=== PATIENT | male | born 1980 | race Caucasian/White ===

== ENCOUNTER 2022-09-29 01:00 | Day surgery (SDC) | payer BC, SELFPAY ==
[2022-09-17 10:22] VITALS: BMI 30.9
--- NOTE | 2022-09-26 12:09 | P.HP_ITS ---
History of Present Illness History of Present Illness Consent: Risks, benefits, and alternatives have been discussed and questions answered. Patient agrees to proceed with procedure. Chief complaint: fecal abnormalities Narrative: Magdy Orr is a 42 year old male who has noticed a change in his bowel habits. He has seen a great deal of mucus in the stools lately. he has had no blood in his stools. There is a family history of colon cancer , both grand parents on his father side had colon cancer. Review of Systems Review of Systems: All systems reviewed & are unremarkable except as noted in HPI and below PMFSH Social History Social History Smoking status: Never smoker Alcohol intake: never Substance use: never Substance use type: does not use Living arrangements: with family Spiritual care concerns: No Meds Home Medications and Allergies Home Medications Medication Instructions Recorded Confirmed Type No Home Medications 09/17/22 09/17/22 History Allergies Allergy/AdvReac Type Severity Reaction Status Date / Time No Known Allergies Allergy Verified 09/29/22 09:20 Exam Const: General: alert Orientation/consciousness: patient oriented x3 Resp: Auscultation: clear to auscultation bilaterally Cardio: Rhythm: regular rhythm GI: GI Palp: Yes Soft to palpation and No Tenderness to palpation present (GI) Neuro: General: patient oriented x3 Assessment and Plan Assessment and plan (1) Change in bowel habits: Code(s): R19.4 - Change in bowel habit Status: Acute Assessment and Plan: Colonoscopy with possible biopsy or polypectomy or cautery or injection of substances.
[2022-09-29 09:21] VITALS: BP 132/95; PULSE 66; RESP 18; TEMP 36.3; O2SAT 99
[2022-09-29] MEDS: LACTATED RINGERS 1,000 ML 150 ML IV CONT (09:33)
--- NOTE | 2022-09-29 10:13 | P.PNAN_ITS ---
Anes - Initial Pre Proc Eval Procedure: Operation Date: 09/29/22 10:30 Proposed Procedures p Colonoscopy - Portillo Alonso MD Date/Time: 09/29/22 10:13 Surgeon: Portillo Alonso MD Pre Op Diagnosis: fecal abnormalities Patient Data Age: 42 Gender: M Height: 1.78 m Weight: 98.1 kg Last Vital Signs Temp 97.4 F L 09/29/22 09:21 Pulse 66 09/29/22 09:21 Resp 18 09/29/22 09:21 BP 132/95 H 09/29/22 09:21 Pulse Ox 99 09/29/22 09:21 O2 Del Method Room Air 09/29/22 09:21 Allergies Allergy/AdvReac Type Severity Reaction Status Date / Time No Known Allergies Allergy Verified 09/29/22 09:20 Home Medications Medication Instructions Recorded Confirmed Type No Home Medications 09/17/22 09/17/22 History Patient hx anesthesia problems: none Family hx anesthesia problems: none Results Review: All pre-operative results and documents have been reviewed as part of the pre- operative evaluation. [facility] Social History Social History Smoking status: Never smoker Alcohol intake: never Substance use: never Substance use type: does not use Living arrangements: with family Spiritual care concerns: No Anes - Eval Final PreProcedure Day of Procedure 09/29/22 10:13 Patient weight: overweight Heart: regular rate and rhythm Lungs: clear to auscultation Airway: Mallampati scale class II Neurological: alert and oriented Last oral intake: >/= 8 hours ASA classification: II Emergent: no Anesthetic plan: proceed Anesthesia type and monitoring: general GIVS and standard monitoring Results Review: All pre-operative results and documents have been reviewed as part of the pre- operative evaluation. Informed Consent: The patient's anesthetic plan and its attendant risks and benefits were discussed with the patient/family/POA. Questions were solicited and answers provided to the satisfaction of the patient/family/POA.
[2022-09-29 10:56] VITALS: BP 112/82; PULSE 60; RESP 18; O2SAT 95
[2022-09-29 11:06] VITALS: BP 114/80; PULSE 57; RESP 18; O2SAT 97
[2022-09-29 11:16] VITALS: BP 119/85; PULSE 56; RESP 18; O2SAT 97
== END 2022-09-29 11:21 | disposition home or self-care (01) ==
PROVIDERS: PCP Physician Assistant; Visit Provider Internal Medicine Gastroenterology
PROC: 0DJD8ZZ Inspection of Lower Intestinal Tract, Via Natural or Artificial Opening Endoscopic (ICD-10-PCS; CPT 45378; principal; 2022-09-29 10:30)
DX: R19.4 Change in bowel habit (principal); K57.30 Diverticulosis of large intestine without perforation or abscess without bleeding; K51.20 Ulcerative (chronic) proctitis without complications; K52.9 Noninfective gastroenteritis and colitis, unspecified
CPT/HCPCS: 45380; 88305; J2001; J2704; J7120

== ENCOUNTER 2022-11-28 10:47 | Outpatient (CLI) | payer BC, SELFPAY ==
[2022-12-06 19:52] LABS: Calprotectin, Stool 491 mcg/g
== END 2022-11-28 10:48 | disposition home or self-care (01) ==
LOC: ANHLAB 10:48
PROVIDERS: PCP Physician Assistant; Visit Provider Internal Medicine Gastroenterology
DX: K51.20 Ulcerative (chronic) proctitis without complications (principal)
CPT/HCPCS: 83993

== ENCOUNTER 2023-05-19 09:23 | Outpatient (CLI) | payer BC, SELFPAY ==
[2023-05-25 19:03] LABS: Calprotectin, Stool 154 mcg/g
== END 2023-05-19 09:24 | disposition home or self-care (01) ==
PROVIDERS: PCP Physician Assistant; Visit Provider Internal Medicine Gastroenterology
DX: K51.20 Ulcerative (chronic) proctitis without complications (principal)
CPT/HCPCS: 83993

== ENCOUNTER 2024-11-21 00:26 | Day surgery (SDC) | payer BC, SELFPAY ==
[2024-11-09 10:02] VITALS: BMI 30.9
--- OUTSIDE RECORDS SUMMARY | 2024-11-21 00:29 | XMS_ITS | Data Portability ---
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 Plan of Treatment Reminders Order Date Submit Date Provider Last Modified By Organization Details Last Modified Time Details Appointments None recorded. Lab unlisted lab - lipoprotein fractionati on, nmr with lipid panel (triglyceri aliyah/HDL-C) 2022 023 [facility], [address], [place], [address], 3 13:52:01 PSA, serum or plasma 2022 023 [facility], [address], [place], [address], 3 13:52:07 TSH + free T4, serum 2022 023 [facility], [address], [place], [address], 3 13:52:03 CMP, serum or plasma 2022 023 [facility], [address], [place], [address], 3 13:52:04 CBC w/ auto diff 2022 023 [facility], [address], [place], [address], 3 13:52:06 HbA1c (hemoglobin A1c), blood 2022 023 [facility] [facility], [address], [place], [address], 3 13:52:05 Referral None recorded. Procedures None recorded. Surgeries None recorded. Imaging None recorded. Medication Orders None recorded. Patient TargetsNo targets recorded. Patient InstructionsNo instructions recorded. Reason for Referral None Reported. Results Created Date Observation Date Name Description Value Unit Range Abnormal Flag Note LastModifiedBy Organization Detail LastModifiedTime 07/30/2008/02/2021 PSA, TOTAL PSA, total 0.63 NG/mL < or = 4.00 normal The total PSA value from this assay syste m is stand ardiz ed again st the WHO stand brandon. The test resul t will be appro ximat lionel 20% lower when sohail red to the equim olar- stand ardiz ed total PSA (Mahajan man Coult er). Sohail rison of seria l PSA resul ts shoul d be inter prete d with this fact in mind. This test was perfo rmed using the LIN TVe ns chemi lumin escen t metho d. Value s obtai vincent from diffe rent assay metho ds canno t be used inter zhang eably . PSA level s, regar dless of value , shoul d not be inter prete d as absol [place] evide nce of the prese nce or absen ce of disea se. Not Available [facility] [address] [address] [place], [address], 08/02/2021 18:17:24 07/30/20 21 08/02/2021 URINA LYSIS , COMPL ETE color yellow yellow normal Not Available [facility] [address] [address] [place], [address], 08/02/2021 18:17:23 07/30/20 21 08/02/2021 URINA LYSIS , COMPL ETE appearance clear clear normal Not Available [facility] [address] [address] [place], [address], 08/02/2021 18:17:23 07/30/20 21 08/02/2021 URINA LYSIS , COMPL ETE specific gravity 1.010 1.001- 1.035 normal Not Available [address], [address], 08/02/2021 18:17:23 07/30/20 21 08/02/2021 URINA LYSIS , COMPL ETE pH 7.0 5.0-8. 0 normal Not Available [address], [address], 08/02/2021 18:17:23 07/30/20 21 08/02/2021 URINA LYSIS , COMPL ETE glucose negati ve negati ve normal Not Available [address], [address], 08/02/2021 18:17:23 07/30/20 21 08/02/2021 URINA LYSIS , COMPL ETE bilirubin negati ve negati ve normal Not Available [address], [address], 08/02/2021 18:17:23 07/30/20 21 08/02/2021 URINA LYSIS , COMPL ETE ketones negati ve negati ve normal Not Available [address], [address], 08/02/2021 18:17:23 07/30/20 21 08/02/2021 URINA LYSIS , COMPL ETE occult blood negati ve negati ve normal Not Available [address], [address], 08/02/2021 18:17:23 07/30/20 21 08/02/2021 URINA LYSIS , COMPL ETE protein negati ve negati ve normal Not Available [address], [address], 08/02/2021 18:17:23 07/30/20 21 08/02/2021 URINA LYSIS , COMPL ETE nitrite negati ve negati ve normal Not Available [address], [address], 08/02/2021 18:17:23 07/30/20 21 08/02/2021 URINA LYSIS , COMPL ETE leukocyte esterase negati ve negati ve normal Not Available [address], [address], 08/02/2021 18:17:23 07/30/20 21 08/02/2021 URINA LYSIS , COMPL ETE WBC none seen /hpf < or = 5 normal Not Available [address], [address], 08/02/2021 18:17:23 07/30/20 21 08/02/2021 URINA LYSIS , COMPL ETE RBC none seen /hpf < or = 2 normal Not Available [address], [address], 08/02/2021 18:17:23 07/30/20 21 08/02/2021 URINA LYSIS , COMPL ETE squamous epithelial cells none seen /hpf < or = 5 normal Not Available [address], [address], 08/02/2021 18:17:23 07/30/20 21 08/02/2021 URINA LYSIS , COMPL ETE bacteria none seen /hpf none seen normal Not Available [address], [address], 08/02/2021 18:17:23 07/30/20 21 08/02/2021 URINA LYSIS , COMPL ETE hyaline cast none seen /lpf none seen normal Not Available [address] [place], [address], 08/02/2021 18:17:23 07/30/20 21 08/02/2021 CBC (INCL UDES DIFF/ PLT) white blood cell count 6.6 thous and/u L 3.8-10 .8 normal Not Available [address], [address], 08/02/2021 18:17:22 07/30/20 21 08/02/2021 CBC (INCL UDES DIFF/ PLT) red blood cell count 5.05 shan on/uL 4.20-5 .80 normal Not Available [address], [address], 08/02/2021 18:17:22 07/30/20 21 08/02/2021 CBC (INCL UDES DIFF/ PLT) hemoglobin 14.9 g/dL 13.2-1 7.1 normal Not Available [address], [address], 08/02/2021 18:17:22 07/30/20 21 08/02/2021 CBC (INCL UDES DIFF/ PLT) hematocrit 45.2 % 38.5-5 0.0 normal Not Available [address], [address], 08/02/2021 18:17:22 07/30/20 21 08/02/2021 CBC (INCL UDES DIFF/ PLT) MCV 89.5 fL 80.0-1 00.0 normal Not Available [address], [address], 08/02/2021 18:17:22 07/30/20 21 08/02/2021 CBC (INCL UDES DIFF/ PLT) MCH 29.5 pg 27.0-3 3.0 normal Not Available [address], [address], 08/02/2021 18:17:22 07/30/20 21 08/02/2021 CBC (INCL UDES DIFF/ PLT) MCHC 33.0 g/dL 32.0-3 6.0 normal Not Available [address], [address], 08/02/2021 18:17:22 07/30/20 21 08/02/2021 CBC (INCL UDES DIFF/ PLT) RDW 12.0 % 11.0-1 5.0 normal Not Available [address], [address], 08/02/2021 18:17:22 07/30/20 21 08/02/2021 CBC (INCL UDES DIFF/ PLT) platelet count 274 thous and/u L 140-40 0 normal Not Available [address], [address], 08/02/2021 18:17:22 07/30/20 21 08/02/2021 CBC (INCL UDES DIFF/ PLT) MPV 10.0 fL 7.5-12 .5 normal Not Available [address], [address], 08/02/2021 18:17:22 07/30/20 21 08/02/2021 CBC (INCL UDES DIFF/ PLT) absolute neutrophils 4198 cells /uL 1500-7 800 normal Not Available [address], [address], 08/02/2021 18:17:22 07/30/20 21 08/02/2021 CBC (INCL UDES DIFF/ PLT) absolute lymphocytes 1775 cells /uL 850-39 00 normal Not Available [address], [address], 08/02/2021 18:17:22 07/30/20 21 08/02/2021 CBC (INCL UDES DIFF/ PLT) absolute monocytes 449 cells /uL 200-95 0 normal Not Available [address], [address], 08/02/2021 18:17:22 07/30/20 21 08/02/2021 CBC (INCL UDES DIFF/ PLT) absolute eosinophils 119 cells /uL 15-500 normal Not Available [address] [place], [address], 08/02/2021 18:17:22 07/30/20 21 08/02/2021 CBC (INCL UDES DIFF/ PLT) absolute basophils 59 cells /uL 0-200 normal Not Available [address] [place], [address], 08/02/2021 18:17:22 07/30/20 21 08/02/2021 CBC (INCL UDES DIFF/ PLT) neutrophils 63.6 % normal Not Available [address] [place], [address], 08/02/2021 18:17:22 07/30/20 21 08/02/2021 CBC (INCL UDES DIFF/ PLT) lymphocytes 26.9 % normal Not Available [address], [address], 08/02/2021 18:17:22 07/30/20 21 08/02/2021 CBC (INCL UDES DIFF/ PLT) monocytes 6.8 % normal Not Available [address], [address], 08/02/2021 18:17:22 07/30/20 21 08/02/2021 CBC (INCL UDES DIFF/ PLT) eosinophils 1.8 % normal Not Available [facility] [address], [address], 08/02/2021 18:17:22 07/30/20 21 08/02/2021 CBC (INCL UDES DIFF/ PLT) basophils 0.9 % normal Not Available [address] [place], [address], 08/02/2021 18:17:22 07/30/20 21 08/02/2021 HEMOG LOBIN A1C hemoglobin A1C 5.0 %_of_ total _HGB <5.7 normal Not Available [address], [address], 08/02/2021 18:17:21 07/30/20 21 08/02/2021 COMPR EHENS CLAUDIA METAB OLIC PANEL glucose 77 mg/dL 65-99 normal Fasti ng refer ence inter lory Not Available [address], [address], 08/02/2021 18:17:20 07/30/20 21 08/02/2021 COMPR EHENS CLAUDIA METAB OLIC PANEL urea nitrogen (BUN) 12 mg/dL 7-25 normal Not Available [address], [address], 08/02/2021 18:17:20 07/30/20 21 08/02/2021 COMPR EHENS CLAUDIA METAB OLIC PANEL creatinine 1.02 mg/dL 0.60-1 .35 normal Not Available [address], [address], 08/02/2021 18:17:20 07/30/20 21 08/02/2021 COMPR EHENS CLAUDIA METAB OLIC PANEL eGFR non-afr. kazakh 90 mL/mi n/1.7 3m2 > or = 60 normal Not Available [address], [address], 08/02/2021 18:17:20 07/30/20 21 08/02/2021 COMPR EHENS CLAUDIA METAB OLIC PANEL eGFR 105 mL/mi n/1.7 3m2 > or = 60 normal Not Available [address], [address], 08/02/2021 18:17:20 07/30/20 21 08/02/2021 COMPR EHENS CLAUDIA METAB OLIC PANEL BUN/creatini ne ratio not applic able (calc ) 6-22 Not Available [address], [address], 08/02/2021 18:17:20 07/30/20 21 08/02/2021 COMPR EHENS CLAUDIA METAB OLIC PANEL sodium 141 mmol/ L 135-14 6 normal Not Available [address], [address], 08/02/2021 18:17:20 07/30/20 21 08/02/2021 COMPR EHENS CLAUDIA METAB OLIC PANEL potassium 4.4 mmol/ L 3.5-5. 3 normal Not Available [address], [address], 08/02/2021 18:17:20 07/30/20 21 08/02/2021 COMPR EHENS CLAUDIA METAB OLIC PANEL chloride 105 mmol/ L 98-110 normal Not Available [address], [address], 08/02/2021 18:17:20 07/30/20 21 08/02/2021 COMPR EHENS CLAUDIA METAB OLIC PANEL carbon dioxide 30 mmol/ L 20-32 normal Not Available [address], [address], 08/02/2021 18:17:20 07/30/20 21 08/02/2021 COMPR EHENS CLAUDAI METAB OLIC PANEL calcium 9.9 mg/dL 8.6-10 .3 normal Not Available [address], [address], 08/02/2021 18:17:20 07/30/20 21 08/02/2021 COMPR EHENS CLAUDIA METAB OLIC PANEL protein, total 7.6 g/dL 6.1-8. 1 normal Not Available [address], [address], 08/02/2021 18:17:20 07/30/20 21 08/02/2021 COMPR EHENS CLAUDIA METAB OLIC PANEL albumin 4.8 g/dL 3.6-5. 1 normal Not Available [address], [address], 08/02/2021 18:17:20 07/30/20 21 08/02/2021 COMPR EHENS CLAUDIA METAB OLIC PANEL globulin 2.8 g/dL_ (calc ) 1.9-3. 7 normal Not Available [address], [address], 08/02/2021 18:17:20 07/30/20 21 08/02/2021 COMPR EHENS CLAUDIA METAB OLIC PANEL albumin/glob ulin ratio 1.7 (calc ) 1.0-2. 5 normal Not Available [address], [address], 08/02/2021 18:17:20 07/30/20 21 08/02/2021 COMPR EHENS CLAUDIA METAB OLIC PANEL bilirubin, total 0.6 mg/dL 0.2-1. 2 normal Not Available [address], [address], 08/02/2021 18:17:20 07/30/20 21 08/02/2021 COMPR EHENS CLAUDIA METAB OLIC PANEL alkaline phosphatase 48 U/L 36-130 normal Not Available [address] [address] [place], [address], 08/02/2021 18:17:20 07/30/20 21 08/02/2021 COMPR EHENS CLAUDIA METAB OLIC PANEL AST 22 U/L 10-40 normal Not Available [address], [address], 08/02/2021 18:17:20 07/30/20 21 08/02/2021 COMPR EHENS CLAUDIA METAB OLIC PANEL ALT 22 U/L 9-46 normal Not Available [address], [address], 08/02/2021 18:17:20 07/30/20 21 08/02/2021 LIPOP ROTEI N FRACT IONAT ION, NMR WITH LIPID PANEL (TRIG LYCER IDES/ HDL-C ) chol/HDL C 3.3 calc <3.6 Not Available [address], [address], 08/02/2021 18:17:20 07/30/20 21 08/02/2021 LIPOP ROTEI N FRACT IONAT ION, NMR WITH LIPID PANEL (TRIG LYCER IDES/ HDL-C ) cholesterol, total 164 mg/dL <200 Not Available [address], [address], 08/02/2021 18:17:20 07/30/20 21 08/02/2021 LIPOP ROTEI N FRACT IONAT ION, NMR WITH LIPID PANEL (TRIG LYCER IDES/ HDL-C ) HDL cholesterol 50 mg/dL >39 Not Available [address] [address] [place], [address], 08/02/2021 18:17:20 07/30/20 21 08/02/2021 LIPOP ROTEI N FRACT IONAT ION, NMR WITH LIPID PANEL (TRIG LYCER IDES/ HDL-C ) triglyceride s 60 mg/dL <150 Not Available [address], [address], 08/02/2021 18:17:20 07/30/20 21 08/02/2021 LIPOP ROTEI N FRACT IONAT ION, NMR WITH LIPID PANEL (TRIG LYCER IDES/ HDL-C ) LDL cholesterol 99 mg/dL _(porfirio c) <100 Atul able range <100 mg/dL for prima ry preve ntion ; <70 mg/dL for patie nts with CHD or diabe tic patie nts with >= 2 CHD risk facto rs. LDL-C is now calcu lated using the [facility] heenau tomirene n, which is a valid ated novel radha burroughs than the Fried miguel ángel equat ion in the estim ation of LDL-C . Kaelyn marx SS et al. KAYLEY. 2013; 310(1 9): 2061- 2068 (http ://ed ucati on.Qu estDi brandonAdvanced Mobile Solutionss. com/f aq/FA Q164) Not Available [facility] [address] [place], [address], 08/02/2021 18:17:20 07/30/20 21 08/02/2021 LIPOP ROTEI N FRACT IONAT ION, NMR WITH LIPID PANEL (TRIG LYCER IDES/ HDL-C ) non HDL cholesterol 114 mg/dL _(porfirio c) <130 For patie nts with diabe rey plus 1 major ASCVD risk facto r, treat ing to a non-H DL-C goal of <100 mg/dL (LDL- C of <70 mg/dL ) is consi tayd coy chavezo n. Not Available [facility] [address] [place], [address], 08/02/2021 18:17:20 07/30/20 21 08/02/2021 LIPOP ROTEI N FRACT IONAT ION, NMR WITH LIPID PANEL (TRIG LYCER IDES/ HDL-C ) TG/HDL C 1.2 calc <2.0 Not Available [facility] [address] [place], [address], 08/02/2021 18:17:20 07/30/2008/02/2021 LIPOP ROTEI N FRACT IONAT ION, NMR WITH LIPID PANEL (TRIG LYCER IDES/ HDL-C ) LDL P 989 nmol/ L <935 high Relat claudia risk: Optim al <935; Moder ate 935-1 816; High >1816 nmol/ L. Refer ence range is 592-2 404 nmol/ L. This test is perfo rmed by a Nucle ar Magne tic Reson ance metho d. This test was devel oped and its perfo rmanc e reid cteri stics deter mined by [facility] It has not been clear ed or appro dre by the U.[place]. FDA. The [facility] is regul ated under Clini porfirio Labor atory Impro vemen t Amend ments (CLIA ) as quali fied to perfo rm high- compl exity testi ng. This test is used for clini porfirio purpo ses. It shoul d not be regar ded as inves tigat ional or for resea rch. Not Available [facility] [address] [place], [address], 08/02/2021 18:17:20 07/30/20 21 08/02/2021 LIPOP ROTEI N FRACT IONAT ION, NMR WITH LIPID PANEL (TRIG LYCER IDES/ HDL-C ) small LDL P 299 nmol/ L <467 Relat claudia risk: Optim al <467; Moder ate 467-8 20; High >820 nmol/ L. Refer ence range is <1408 nmol/ L. Not Available [facility] [address], [address], 08/02/2021 18:17:20 07/30/20 21 08/02/2021 LIPOP ROTEI N FRACT IONAT ION, NMR WITH LIPID PANEL (TRIG LYCER IDES/ HDL-C ) LDL size 21.2 nm >20.5 Relat claudia risk: Optim al >20.5 ; High <20.6 nm. Refer ence range is 20.0- 22.3 nm. Not Available [facility] [address] [place], [address], 08/02/2021 18:17:20 07/30/2008/02/2021 LIPOP ROTEI N FRACT IONAT ION, NMR WITH LIPID PANEL (TRIG LYCER IDES/ HDL-C ) HDL P 29.1 umol/ L >32.8 low Relat claudia risk: Optim al >32.8 ; Moder ate 29.2- 32.8; High <29.2 umol/ L. Refer ence range is 21.1- 43.4 umol/ L. Not Available [address], [address], 08/02/2021 18:17:20 07/30/20 21 08/02/2021 LIPOP ROTEI N FRACT IONAT ION, NMR WITH LIPID PANEL (TRIG LYCER IDES/ HDL-C ) large HDL P 3.2 umol/ L >7.2 low Relat claudia risk: Optim al >7.2; Moder ate 5.3-7 .2; High <5.3 umol/ L. Refer ence range is >3.5 umol/ L. Not Available [address], [address], 08/02/2021 18:17:20 07/30/2008/02/2021 LIPOP ROTEI N FRACT IONAT ION, NMR WITH LIPID PANEL (TRIG LYCER IDES/ HDL-C ) HDL size 8.6 nm >9.0 low Relat claudia risk: Optim al >9.0; Moder ate 8.7-9 .0; High <8.7 nm. Refer ence range is 8.3-1 0.5 nm. Not Available [address], [address], 08/02/2021 18:17:20 07/30/20 21 08/02/2021 LIPOP ROTEI N FRACT IONAT ION, NMR WITH LIPID PANEL (TRIG LYCER IDES/ HDL-C ) large VLDL P 1.8 nmol/ L <3.7 Relat claudia risk: Optim al <3.7; Moder ate 3.7-6 .1; High >6.1 nmol/ L. Refer ence range is <16.0 nmol/ L. Not Available [address], [address], 08/02/2021 18:17:20 07/30/20 21 08/02/2021 LIPOP ROTEI N FRACT IONAT ION, NMR WITH LIPID PANEL (TRIG LYCER IDES/ HDL-C ) VLDL size 46.5 nm <47.1 Relat claudia risk: Optim al <47.1 ; Moder ate 47.1- 49.0; High >49.0 nm. Refer ence range is 41.1- 61.7 nm. Not Available [facility] [address] [place], [address], 08/02/2021 18:17:20 07/29/20 22 08/02/2022 PSA, TOTAL PSA, total 0.64 NG/mL < or = 4.00 normal The total PSA value from this assay syste m is stand ardiz ed again st the WHO stand brandon. The test resul t will be appro ximat lionel 20% lower when sohail red to the equim olar- stand ardiz ed total PSA (Mahajan man Coult er). Sohail rison of seria l PSA resul ts shoul d be inter prete d with this fact in mind. This test was perfo rmed using the Sieme ns chemi lumin escen t metho d. Value s obtai vincent from diffe rent assay metho ds canno t be used inter zhang eably . PSA level s, regar dless of value , shoul d not be inter prete d as absol [place] evide nce of the prese nce or absen ce of disea se. Not Available [facility] [address] [place], [address], 08/02/2022 10:45:33 07/29/20 22 08/02/2022 URINA LYSIS , COMPL ETE color yellow yellow normal Not Available [facility] [address] [place], [address], 08/02/2022 10:45:33 07/29/20 22 08/02/2022 URINA LYSIS , COMPL ETE appearance clear clear normal Not Available [facility] [address] [address] [place], [address], 08/02/2022 10:45:33 07/29/20 22 08/02/2022 URINA LYSIS , COMPL ETE specific gravity 1.013 1.001- 1.035 normal Not Available [address], [address], 08/02/2022 10:45:33 07/29/20 22 08/02/2022 URINA LYSIS , COMPL ETE pH 6.5 5.0-8. 0 normal Not Available [address], [address], 08/02/2022 10:45:33 07/29/20 22 08/02/2022 URINA LYSIS , COMPL ETE glucose negati ve negati ve normal Not Available [address], [address], 08/02/2022 10:45:33 07/29/20 22 08/02/2022 URINA LYSIS , COMPL ETE bilirubin negati ve negati ve normal Not Available [address], [address], 08/02/2022 10:45:33 07/29/20 22 08/02/2022 URINA LYSIS , COMPL ETE ketones negati ve negati ve normal Not Available [address], [address], 08/02/2022 10:45:33 07/29/20 22 08/02/2022 URINA LYSIS , COMPL ETE occult blood negati ve negati ve normal Not Available [address], [address], 08/02/2022 10:45:33 07/29/20 22 08/02/2022 URINA LYSIS , COMPL ETE protein trace negati ve abnormal Not Available [address] [place], [address], 08/02/2022 10:45:33 07/29/20 22 08/02/2022 URINA LYSIS , COMPL ETE nitrite negati ve negati ve normal Not Available [address], [address], 08/02/2022 10:45:33 07/29/20 22 08/02/2022 URINA LYSIS , COMPL ETE leukocyte esterase negati ve negati ve normal Not Available [address] [place], [address], 08/02/2022 10:45:33 07/29/20 22 08/02/2022 URINA LYSIS , COMPL ETE WBC none seen /hpf < or = 5 normal Not Available [address] [place], [address], 08/02/2022 10:45:33 07/29/20 22 08/02/2022 URINA LYSIS , COMPL ETE RBC none seen /hpf < or = 2 normal Not Available [address] [place], [address], 08/02/2022 10:45:33 07/29/20 22 08/02/2022 URINA LYSIS , COMPL ETE squamous epithelial cells none seen /hpf < or = 5 normal Not Available [address], [address], 08/02/2022 10:45:33 07/29/20 22 08/02/2022 URINA LYSIS , COMPL ETE bacteria none seen /hpf none seen normal Not Available [address], [address], 08/02/2022 10:45:33 07/29/20 22 08/02/2022 URINA LYSIS , COMPL ETE hyaline cast 0-5 /lpf none seen abnormal Not Available [address] [place], [address], 08/02/2022 10:45:33 07/29/20 22 08/02/2022 CBC (INCL UDES DIFF/ PLT) white blood cell count 6.1 thous and/u L 3.8-10 .8 normal Not Available [address], [address], 08/02/2022 10:45:32 07/29/20 22 08/02/2022 CBC (INCL UDES DIFF/ PLT) red blood cell count 5.11 shan on/uL 4.20-5 .80 normal Not Available [address], [address], 08/02/2022 10:45:32 07/29/20 22 08/02/2022 CBC (INCL UDES DIFF/ PLT) hemoglobin 15.3 g/dL 13.2-1 7.1 normal Not Available [address], [address], 08/02/2022 10:45:32 07/29/20 22 08/02/2022 CBC (INCL UDES DIFF/ PLT) hematocrit 44.4 % 38.5-5 0.0 normal Not Available [address], [address], 08/02/2022 10:45:32 07/29/20 22 08/02/2022 CBC (INCL UDES DIFF/ PLT) MCV 86.9 fL 80.0-1 00.0 normal Not Available [address], [address], 08/02/2022 10:45:32 07/29/20 22 08/02/2022 CBC (INCL UDES DIFF/ PLT) MCH 29.9 pg 27.0-3 3.0 normal Not Available [address], [address], 08/02/2022 10:45:32 07/29/20 22 08/02/2022 CBC (INCL UDES DIFF/ PLT) MCHC 34.5 g/dL 32.0-3 6.0 normal Not Available [address], [address], 08/02/2022 10:45:32 07/29/20 22 08/02/2022 CBC (INCL UDES DIFF/ PLT) RDW 11.8 % 11.0-1 5.0 normal Not Available [address], [address], 08/02/2022 10:45:32 07/29/20 22 08/02/2022 CBC (INCL UDES DIFF/ PLT) platelet count 293 thous and/u L 140-40 0 normal Not Available [address], [address], 08/02/2022 10:45:32 07/29/20 22 08/02/2022 CBC (INCL UDES DIFF/ PLT) MPV 10.3 fL 7.5-12 .5 normal Not Available [address], [address], 08/02/2022 10:45:32 07/29/20 22 08/02/2022 CBC (INCL UDES DIFF/ PLT) absolute neutrophils 3605 cells /uL 1500-7 800 normal Not Available [address], [address], 08/02/2022 10:45:32 07/29/20 22 08/02/2022 CBC (INCL UDES DIFF/ PLT) absolute lymphocytes 1781 cells /uL 850-39 00 normal Not Available [address], [address], 08/02/2022 10:45:32 07/29/20 22 08/02/2022 CBC (INCL UDES DIFF/ PLT) absolute monocytes 506 cells /uL 200-95 0 normal Not Available [address], [address], 08/02/2022 10:45:32 07/29/20 22 08/02/2022 CBC (INCL UDES DIFF/ PLT) absolute eosinophils 159 cells /uL 15-500 normal Not Available [address] [place], [address], 08/02/2022 10:45:32 07/29/20 22 08/02/2022 CBC (INCL UDES DIFF/ PLT) absolute basophils 49 cells /uL 0-200 normal Not Available [address], [address], 08/02/2022 10:45:32 07/29/20 22 08/02/2022 CBC (INCL UDES DIFF/ PLT) neutrophils 59.1 % normal Not Available [address], [address], 08/02/2022 10:45:32 07/29/20 22 08/02/2022 CBC (INCL UDES DIFF/ PLT) lymphocytes 29.2 % normal Not Available [address], [address], 08/02/2022 10:45:32 07/29/20 22 08/02/2022 CBC (INCL UDES DIFF/ PLT) monocytes 8.3 % normal Not Available [address], [address], 08/02/2022 10:45:32 07/29/20 22 08/02/2022 CBC (INCL UDES DIFF/ PLT) eosinophils 2.6 % normal Not Available [facility] [address], [address], 08/02/2022 10:45:32 07/29/20 22 08/02/2022 CBC (INCL UDES DIFF/ PLT) basophils 0.8 % normal Not Available [address], [address], 08/02/2022 10:45:32 07/29/2008/02/2022 HEMOG LOBIN A1C hemoglobin A1C 5.0 %_of_ total _HGB <5.7 normal For the purpo se of kandis otero for the prese nce of diabe rey: <5.7% Consi stent with the absen ce of diabe rey 5.7-6 .4% Consi stent with incre ased risk for diabe rey (pred iabet es) > or =6.5% Consi stent with diabe rey This assay resul t is consi stent with a decre ased risk of diabe rey. Curre ntly, no conse nsus exist s rosemary dooley use of hemog lobin A1c for diagn osis of diabe rey in child halie. Accor ding to [employer] re[employer] n (ADA) guide lines , hemog lobin A1c <7.0% repre sents optim al contr ol in non-p regna nt diabe tic patie nts. Diffe rent metri cs may apply to speci fic patie nt popul ation s. [facility] in Diabe rey(A DA). Not Available [address] [address] [place], [address], 08/02/2022 10:45:31 07/29/20 22 08/02/2022 COMPR EHENS CLAUDIA METAB OLIC PANEL glucose 81 mg/dL 65-99 normal Fasti ng refer ence inter lory Not Available [address] [address] [place], [address], 08/02/2022 10:45:31 07/29/20 22 08/02/2022 COMPR EHENS CLAUDIA METAB OLIC PANEL urea nitrogen (BUN) 10 mg/dL 7-25 normal Not Available [facility] [address] [address] [place], [address], 08/02/2022 10:45:31 07/29/20 22 08/02/2022 COMPR EHENS CLAUDIA METAB OLIC PANEL creatinine 1.19 mg/dL 0.60-1 .29 normal Not Available [address], [address], 08/02/2022 10:45:31 07/29/20 22 08/02/2022 COMPR EHENS CLAUDIA METAB OLIC PANEL eGFR 78 mL/mi n/1.7 3m2 > or = 60 normal The eGFR is based on the CKD-E PI 2020 equat ion. To calcu late the new eGFR from a previ ous Creat inine or Cysta tin C resul t, go to https ://obdulia w.lukas quiles.o liz/pr ofess ional s/ kdoqi /gfr% 5Fcal culat or Not Available [address], [address], 08/02/2022 10:45:31 07/29/20 22 08/02/2022 COMPR EHENS CLAUDIA METAB OLIC PANEL BUN/creatini ne ratio not applic able (calc ) 6-22 Not Available [address] [place], [address], 08/02/2022 10:45:31 07/29/20 22 08/02/2022 COMPR EHENS CLAUDIA METAB OLIC PANEL sodium 140 mmol/ L 135-14 6 normal Not Available [address], [address], 08/02/2022 10:45:31 07/29/20 22 08/02/2022 COMPR EHENS CLAUDIA METAB OLIC PANEL potassium 4.1 mmol/ L 3.5-5. 3 normal Not Available [address] [address] [place], [address], 08/02/2022 10:45:31 07/29/20 22 08/02/2022 COMPR EHENS CLAUDIA METAB OLIC PANEL chloride 104 mmol/ L 98-110 normal Not Available [address] [address] [place], [address], 08/02/2022 10:45:31 07/29/20 22 08/02/2022 COMPR EHENS CLAUDIA METAB OLIC PANEL carbon dioxide 30 mmol/ L 20-32 normal Not Available [address], [address], 08/02/2022 10:45:31 07/29/20 22 08/02/2022 COMPR EHENS CLAUDIA METAB OLIC PANEL calcium 10.0 mg/dL 8.6-10 .3 normal Not Available [address], [address], 08/02/2022 10:45:31 07/29/20 22 08/02/2022 COMPR EHENS CLAUDIA METAB OLIC PANEL protein, total 7.7 g/dL 6.1-8. 1 normal Not Available [address], [address], 08/02/2022 10:45:31 07/29/20 22 08/02/2022 COMPR EHENS CLAUDIA METAB OLIC PANEL albumin 4.9 g/dL 3.6-5. 1 normal Not Available [address], [address], 08/02/2022 10:45:31 07/29/20 22 08/02/2022 COMPR EHENS CLAUDIA METAB OLIC PANEL globulin 2.8 g/dL_ (calc ) 1.9-3. 7 normal Not Available [address], [address], 08/02/2022 10:45:31 07/29/20 22 08/02/2022 COMPR EHENS CLAUDIA METAB OLIC PANEL albumin/glob ulin ratio 1.8 (calc ) 1.0-2. 5 normal Not Available [address], [address], 08/02/2022 10:45:31 07/29/20 22 08/02/2022 COMPR EHENS CLAUDIA METAB OLIC PANEL bilirubin, total 0.6 mg/dL 0.2-1. 2 normal Not Available [address] [address] [place], [address], 08/02/2022 10:45:31 07/29/20 22 08/02/2022 COMPR EHENS CLAUDIA METAB OLIC PANEL alkaline phosphatase 55 U/L 36-130 normal Not Available [address], [address], 08/02/2022 10:45:31 07/29/20 22 08/02/2022 COMPR EHENS CLAUDIA METAB OLIC PANEL AST 20 U/L 10-40 normal Not Available [address], [address], 08/02/2022 10:45:31 07/29/20 22 08/02/2022 COMPR EHENS CLAUDIA METAB OLIC PANEL ALT 17 U/L 9-46 normal Not Available [address], [address], 08/02/2022 10:45:31 07/29/20 22 08/02/2022 TSH+F REE T4 TSH 1.00 mIU/L 0.40-4 .50 normal Not Available [address], [address], 08/02/2022 10:45:29 07/29/20 22 08/02/2022 TSH+F REE T4 T4, free 1.2 NG/dL 0.8-1. 8 normal Not Available [address], [address], 08/02/2022 10:45:29 07/29/2008/02/2022 LIPOP ROTEI N FRACT IONAT ION, NMR WITH LIPID PANEL (TRIG LYCER IDES/ HDL-C ) chol/HDL C 3.6 calc <3.6 high Not Available [address], [address], 08/02/2022 10:45:28 07/29/20 22 08/02/2022 LIPOP ROTEI N FRACT IONAT ION, NMR WITH LIPID PANEL (TRIG LYCER IDES/ HDL-C ) cholesterol, total 169 mg/dL <200 Not Available [address] [address] [place], [address], 08/02/2022 10:45:28 07/29/20 22 08/02/2022 LIPOP ROTEI N FRACT IONAT ION, NMR WITH LIPID PANEL (TRIG LYCER IDES/ HDL-C ) HDL cholesterol 47 mg/dL >39 Not Available [address] [address] [place], [address], 08/02/2022 10:45:28 07/29/20 22 08/02/2022 LIPOP ROTEI N FRACT IONAT ION, NMR WITH LIPID PANEL (TRIG LYCER IDES/ HDL-C ) triglyceride s 52 mg/dL <150 Not Available [facility] [employer] [address] [address] [address] , [place], [address], 08/02/2022 10:45:28 07/29/2008/02/2022 LIPOP ROTEI N FRACT IONAT ION, NMR WITH LIPID PANEL (TRIG LYCER IDES/ HDL-C ) LDL cholesterol 109 mg/dL _(porfirio c) <100 high Atul able range <100 mg/dL for prima ry preve ntion ; <70 mg/dL for patie nts with CHD or diabe tic patie nts with >= 2 CHD risk facto rs. LDL-C is now calcu lated using the Kaelyn n-Hop kins calcu latio n, which is a valid ated novel violetteo d eduardo macias acy than the Fried miguel ángel equat ion in the estim ation of LDL-C . Kaelyn marx SS et al. KAYLEY. 2013; 310(1 9): 2061- 2068 (http ://ed ucati on.Qu estDi brandonos tics. com/f aq/FA Q164) Not Available [address] [address] [place], [address], 08/02/2022 10:45:28 07/29/2008/02/2022 LIPOP ROTEI N FRACT IONAT ION, NMR WITH LIPID PANEL (TRIG LYCER IDES/ HDL-C ) non HDL cholesterol 122 mg/dL _(porfirio c) <130 For patie nts with diabe rey plus 1 major ASCVD risk facto r, treat ing to a non-H DL-C goal of <100 mg/dL (LDL- C of <70 mg/dL ) is consi dered a thera peuti c optio n. Not Available [facility] [address] [place], [address], 08/02/2022 10:45:28 07/29/2008/02/2022 LIPOP ROTEI N FRACT IONAT ION, NMR WITH LIPID PANEL (TRIG LYCER IDES/ HDL-C ) TG/HDL C 1.1 calc <2.0 Not Available [facility] [address] [address], [place], [address], 08/02/2022 10:45:28 07/29/2008/02/2022 LIPOP ROTEI N FRACT IONAT ION, NMR WITH LIPID PANEL (TRIG LYCER IDES/ HDL-C ) LDL P 1440 nmol/ L <935 high Relat claudia risk: Optim al <935; Moder ate 935-1 816; High >1816 nmol/ L. Refer ence range is 592-2 404 nmol/ L. This test is perfo rmed by a Nucle ar Magne tic Reson ance metho d. This test was devel oped and its perfo rmanc e reid cteri stics deter mined by [facility] It has not been clear ed or appro dre by the U.S. FDA. The [facility] is regul ated under Clini porfirio Labor atory Impro vemen t Amend ments (CLIA ) as quali fied to perfo rm high- compl exity testi ng. This test is used for clini porfirio purpo ses. It shoul d not be regar ded as inves tigat ional or for resea [facility]. Not Available [facility] [id number] [place], [place] [address], [address], 08/02/2022 10:45:28 07/29/20 22 08/02/2022 LIPOP ROTEI N FRACT IONAT ION, NMR WITH LIPID PANEL (TRIG LYCER IDES/ HDL-C ) small LDL P 469 nmol/ L <467 high Relat claudia risk: Optim al <467; Moder ate 467-8 20; High >820 nmol/ L. Refer ence range is <1408 nmol/ L. Not Available [facility] [address] [place], [address], 08/02/2022 10:45:28 07/29/20 22 08/02/2022 LIPOP ROTEI N FRACT IONAT ION, NMR WITH LIPID PANEL (TRIG LYCER IDES/ HDL-C ) LDL size 21.1 nm >20.5 Relat claudia risk: Optim al >20.5 ; High <20.6 nm. Refer ence range is 20.0- 22.3 nm. Not Available [facility] [address] [facility] [place], [address], 08/02/2022 10:45:28 07/29/20 22 08/02/2022 LIPOP ROTEI N FRACT IONAT ION, NMR WITH LIPID PANEL (TRIG LYCER IDES/ HDL-C ) large VLDL P <1.5 nmol/ L <3.7 Relat claudia risk: Optim al <3.7; Moder ate 3.7-6 .1; High >6.1 nmol/ L. Refer ence range is <16.0 nmol/ L. Not Available [facility] [address] [place], [place] [address], [place], [address], 08/02/2022 10:45:28 07/29/20 22 08/02/2022 LIPOP ROTEI N FRACT IONAT ION, NMR WITH LIPID PANEL (TRIG LYCER IDES/ HDL-C ) HDL P 30.6 umol/ L >32.8 low Relat claudia risk: Optim al >32.8 ; Moder ate 29.2- 32.8; High <29.2 umol/ L. Refer ence range is 21.1- 43.4 umol/ L. Not Available [address], [address], 08/02/2022 10:45:28 07/29/20 22 08/02/2022 LIPOP ROTEI N FRACT IONAT ION, NMR WITH LIPID PANEL (TRIG LYCER IDES/ HDL-C ) large HDL P <3.0 umol/ L >7.2 low Relat claudia risk: Optim al >7.2; Moder ate 5.3-7 .2; High <5.3 umol/ L. Refer ence range is >3.5 umol/ L. Not Available [facility] [address], [address], 08/02/2022 10:45:28 07/29/20 22 08/02/2022 LIPOP ROTEI N FRACT IONAT ION, NMR WITH LIPID PANEL (TRIG LYCER IDES/ HDL-C ) HDL size 8.5 nm >9.0 low Relat claudia risk: Optim al >9.0; Moder ate 8.7-9 .0; High <8.7 nm. Refer ence range is 8.3-1 0.5 nm. Not Available [facility] [address], [address], 08/02/2022 10:45:28 07/29/20 22 08/02/2022 LIPOP ROTEI N FRACT IONAT ION, NMR WITH LIPID PANEL (TRIG LYCER IDES/ HDL-C ) VLDL size 43.7 nm <47.1 Relat claudia risk: Optim al <47.1 ; Moder ate 47.1- 49.0; High >49.0 nm. Refer ence range is 41.1- 61.7 nm. Not Available [facility] [address], [address], 08/02/2022 10:45:28 07/28/2008/02/2023 LIPOP ROTEI N FRACT IONAT ION, NMR WITH LIPID PANEL (TRIG LYCER IDES/ HDL-C ) cholesterol, total 170 mg/dL <200 Not Available [address] [address] [place], [address], 08/02/2023 13:52:01 07/28/2008/02/2023 LIPOP ROTEI N FRACT IONAT ION, NMR WITH LIPID PANEL (TRIG LYCER IDES/ HDL-C ) HDL cholesterol 48 mg/dL >39 Not Available [facility] [address] [address] [place], [address], 08/02/2023 13:52:01 07/28/2008/02/2023 LIPOP ROTEI N FRACT IONAT ION, NMR WITH LIPID PANEL (TRIG LYCER IDES/ HDL-C ) triglyceride s 63 mg/dL <150 Not Available [address] [address] [place], [address], 08/02/2023 13:52:01 07/28/2008/02/2023 LIPOP ROTEI N FRACT IONAT ION, NMR WITH LIPID PANEL (TRIG LYCER IDES/ HDL-C ) LDL cholesterol 107 mg/dL _(porfirio c) <100 high Atul able range <100 mg/dL for prima ry preve ntion ; <70 mg/dL for patie nts with CHD or diabe tic patie nts with >= 2 CHD risk facto rs. LDL-C is now calcu lated using the Kaelyn n-Hop kins calcu latirene n, which is a valid ated novel metho d provi ding paula r accur acy than the Fried miguel ángel equat ion in the estim ation of LDL-C . Kaelyn marx SS et al. KAYLEY. 2013; 310(1 9): 2061- 2068 (http ://ed ucati on.Qu Sohail kee [employer]. com/f aq/FA Q164) Not Available [address] [address] [place], [address], 08/02/2023 13:52:01 07/28/2008/02/2023 LIPOP ROTEI N FRACT IONAT ION, NMR WITH LIPID PANEL (TRIG LYCER IDES/ HDL-C ) chol/HDL C 3.5 calc <5.0 Not Available [facility] [address] [place], [address], 08/02/2023 13:52:01 07/28/2008/02/2023 LIPOP ROTEI N FRACT IONAT ION, NMR WITH LIPID PANEL (TRIG LYCER IDES/ HDL-C ) non HDL cholesterol 122 mg/dL _(porfirio c) <130 For patie nts with diabe rey plus 1 major ASCVD risk facto r, treat ing to a non-H DL-C goal of <100 mg/dL (LDL- C of <70 mg/dL ) is consi dered a thera peuti c optio n. Not Available [facility] [address] [place], [address], 08/02/2023 13:52:01 07/28/20 23 08/02/2023 LIPOP ROTEI N FRACT IONAT ION, NMR WITH LIPID PANEL (TRIG LYCER IDES/ HDL-C ) TG/HDL C 1.3 calc <2.0 Not Available [facility] [address] [place], [address], 08/02/2023 13:52:01 07/28/2008/02/2023 LIPOP ROTEI N FRACT IONAT ION, NMR WITH LIPID PANEL (TRIG LYCER IDES/ HDL-C ) LDL P 1508 nmol/ L <935 high This test was devnoam cook and its damián tical perfo rmanc e reid cteri stics have been deter mined by [facility] Cardi rosa Tatum r Daya mckenzie at [facility]. It has not been clear ed or appro dre by the U.S. Food and Drug Admin istra tion. This assay has been valid ated pursu ant to the CLIA regul ation s and is used for clini porfirio purpo ses. Relat claudia risk: Optim al <935; Moder ate 935-1 816; High >1816 nmol/ L. Refer ence range is 592-2 404 nmol/ L. Not Available [address], [address], 08/02/2023 13:52:01 07/28/2008/02/2023 LIPOP ROTEI N FRACT IONAT ION, NMR WITH LIPID PANEL (TRIG LYCER IDES/ HDL-C ) small LDL P 539 nmol/ L <467 high Relat claudia risk: Optim al <467; Moder ate 467-8 20; High >820 nmol/ L. Refer ence range is <1408 nmol/ L. Not Available [facility] [address], [address], 08/02/2023 13:52:01 07/28/2008/02/2023 LIPOP ROTEI N FRACT IONAT ION, NMR WITH LIPID PANEL (TRIG LYCER IDES/ HDL-C ) LDL size 20.9 nm >20.5 Relat claudia risk: Optim al >20.5 ; High <20.6 nm. Refer ence range is 20.0- 22.3 nm. Not Available [facility] [address], [address], 08/02/2023 13:52:01 07/28/2008/02/2023 LIPOP ROTEI N FRACT IONAT ION, NMR WITH LIPID PANEL (TRIG LYCER IDES/ HDL-C ) HDL P 32.3 umol/ L >32.8 low Relat claudia risk: Optim al >32.8 ; Moder ate 29.2- 32.8; High <29.2 umol/ L. Refer ence range is 21.1- 43.4 umol/ L. Not Available [facility] [address], [address], 08/02/2023 13:52:01 07/28/20 23 08/02/2023 LIPOP ROTEI N FRACT IONAT ION, NMR WITH LIPID PANEL (TRIG LYCER IDES/ HDL-C ) large HDL P <3.0 umol/ L >7.2 low Relat claudia risk: Optim al >7.2; Moder ate 5.3-7 .2; High <5.3 umol/ L. Refer ence range is >3.5 umol/ L. Not Available [address], [address], 08/02/2023 13:52:01 07/28/2008/02/2023 LIPOP ROTEI N FRACT IONAT ION, NMR WITH LIPID PANEL (TRIG LYCER IDES/ HDL-C ) HDL size 8.4 nm >9.0 low Relat claudia risk: Optim al >9.0; Moder ate 8.7-9 .0; High <8.7 nm. Refer ence range is 8.3-1 0.5 nm. Not Available [facility] [address], [address], 08/02/2023 13:52:01 07/28/2008/02/2023 LIPOP ROTEI N FRACT IONAT ION, NMR WITH LIPID PANEL (TRIG LYCER IDES/ HDL-C ) large VLDL P <1.5 nmol/ L <3.7 Relat claudia risk: Optim al <3.7; Moder ate 3.7-6 .1; High >6.1 nmol/ L. Refer ence range is <16.0 nmol/ L. Not Available [address], [address], 08/02/2023 13:52:01 07/28/2008/02/2023 LIPOP ROTEI N FRACT IONAT ION, NMR WITH LIPID PANEL (TRIG LYCER IDES/ HDL-C ) VLDL size 42.7 nm <47.1 Relat claudia risk: Optim al <47.1 ; Moder ate 47.1- 49.0; High >49.0 nm. Refer ence range is 41.1- 61.7 nm. Not Available [facility] [address], [address], 08/02/2023 13:52:01 07/28/20 23 08/02/2023 TSH+F REE T4 TSH 0.97 mIU/L 0.40-4 .50 normal Not Available [address], [address], 08/02/2023 13:52:03 07/28/20 23 08/02/2023 TSH+F REE T4 T4, free 1.0 NG/dL 0.8-1. 8 normal Not Available [address], [address], 08/02/2023 13:52:03 07/28/2008/02/2023 COMPR EHENS CLAUDIA METAB OLIC PANEL glucose 93 mg/dL 65-99 normal Fasti ng refer ence inter lory Not Available [address], [address], 08/02/2023 13:52:04 07/28/20 23 08/02/2023 COMPR EHENS CLAUDIA METAB OLIC PANEL urea nitrogen (BUN) 10 mg/dL 7-25 normal Not Available [address], [address], 08/02/2023 13:52:04 07/28/20 23 08/02/2023 COMPR EHENS CLAUDIA METAB OLIC PANEL creatinine 1.22 mg/dL 0.60-1 .29 normal Not Available [address], [address], 08/02/2023 13:52:04 07/28/20 23 08/02/2023 COMPR EHENS CLAUDIA METAB OLIC PANEL eGFR 75 mL/mi n/1.7 3m2 > or = 60 normal Not Available [address], [address], 08/02/2023 13:52:04 07/28/20 23 08/02/2023 COMPR EHENS CLAUDIA METAB OLIC PANEL BUN/creatini ne ratio SEE NOTE: (calc ) 6-22 Not Repor jason: BUN and Creat inine are withi n refer ence range . Not Available [address], [address], 08/02/2023 13:52:04 07/28/20 23 08/02/2023 COMPR EHENS CLAUDIA METAB OLIC PANEL sodium 140 mmol/ L 135-14 6 normal Not Available [address], [address], 08/02/2023 13:52:04 07/28/2008/02/2023 COMPR EHENS CLAUDIA METAB OLIC PANEL potassium 4.1 mmol/ L 3.5-5. 3 normal Not Available [address], [address], 08/02/2023 13:52:04 07/28/20 23 08/02/2023 COMPR EHENS CLAUDIA METAB OLIC PANEL chloride 105 mmol/ L 98-110 normal Not Available [address] [address] [place], [address], 08/02/2023 13:52:04 07/28/20 23 08/02/2023 COMPR EHENS CLAUDIA METAB OLIC PANEL carbon dioxide 22 mmol/ L 20-32 normal Not Available [address], [address], 08/02/2023 13:52:04 07/28/20 23 08/02/2023 COMPR EHENS CLAUDIA METAB OLIC PANEL calcium 10.2 mg/dL 8.6-10 .3 normal Not Available [address], [address], 08/02/2023 13:52:04 07/28/20 23 08/02/2023 COMPR EHENS CLAUDIA METAB OLIC PANEL protein, total 7.8 g/dL 6.1-8. 1 normal Not Available [facility] [address] [place], [address], 08/02/2023 13:52:04 07/28/2008/02/2023 COMPR EHENS CLAUDIA METAB OLIC PANEL albumin 4.9 g/dL 3.6-5. 1 normal Not Available [address], [address], 08/02/2023 13:52:04 07/28/2008/02/2023 COMPR EHENS CLAUDIA METAB OLIC PANEL globulin 2.9 g/dL_ (calc ) 1.9-3. 7 normal Not Available [address] [address] [place], [address], 08/02/2023 13:52:04 07/28/20 23 08/02/2023 COMPR EHENS CLAUDIA METAB OLIC PANEL albumin/glob ulin ratio 1.7 (calc ) 1.0-2. 5 normal Not Available [address] [address] [place], [address], 08/02/2023 13:52:04 07/28/2008/02/2023 COMPR EHENS CLAUDIA METAB OLIC PANEL bilirubin, total 0.5 mg/dL 0.2-1. 2 normal Not Available [address] [address] [place], [address], 08/02/2023 13:52:04 07/28/2008/02/2023 COMPR EHENS CLAUDIA METAB OLIC PANEL alkaline phosphatase 53 U/L 36-130 normal Not Available [address] [address] [place], [address], 08/02/2023 13:52:04 07/28/2008/02/2023 COMPR EHENS CLAUDIA METAB OLIC PANEL AST 24 U/L 10-40 normal Not Available [address] [address] [place], [address], 08/02/2023 13:52:04 07/28/20 23 08/02/2023 COMPR EHENS CLAUDIA METAB OLIC PANEL ALT 25 U/L 9-46 normal Not Available [facility] [address] [place], [address], 08/02/2023 13:52:04 07/28/20 23 08/02/2023 HEMOG LOBIN A1C hemoglobin A1C 4.9 %_of_ total _HGB <5.7 normal For the purpo se of scree branden for the prese nce of diabe rey: <5.7% Consi stent with the absen ce of diabe rey 5.7-6 .4% Consi stent with incre ased risk for diabe rey (pred iabet es) > or =6.5% Consi stent with diabe rey This assay resul t is consi stent with a decre ased risk of diabe rey. Curre ntly, no conse nsus exist s rosemary dooley use of hemog lobin A1c for diagn osis of diabe rey in child halie. Accor ding to Ameri can Diabe rey Assoc iatio n (ADA) guide lines , hemog lobin A1c <7.0% repre sents optim al contr ol in non-p regna nt diabe tic patie nts. Diffe rent metri cs may apply to speci fic patie nt popul ation s. Stand ards of Medic al Care in Diabe rey(A DA). Not Available [facility] [address] [place], [address], 08/02/2023 13:52:05 07/28/20 23 08/02/2023 CBC (INCL UDES DIFF/ PLT) white blood cell count 7.3 thous and/u L 3.8-10 .8 normal Not Available [facility] [address] [place], [address], 08/02/2023 13:52:06 07/28/20 23 08/02/2023 CBC (INCL UDES DIFF/ PLT) red blood cell count 5.00 shan on/uL 4.20-5 .80 normal Not Available [address], [address], 08/02/2023 13:52:06 07/28/2008/02/2023 CBC (INCL UDES DIFF/ PLT) hemoglobin 15.2 g/dL 13.2-1 7.1 normal Not Available [address], [address], 08/02/2023 13:52:06 07/28/2008/02/2023 CBC (INCL UDES DIFF/ PLT) hematocrit 44.4 % 38.5-5 0.0 normal Not Available [address], [address], 08/02/2023 13:52:06 07/28/2008/02/2023 CBC (INCL UDES DIFF/ PLT) MCV 88.8 fL 80.0-1 00.0 normal Not Available [address], [address], 08/02/2023 13:52:06 07/28/2008/02/2023 CBC (INCL UDES DIFF/ PLT) MCH 30.4 pg 27.0-3 3.0 normal Not Available [address], [address], 08/02/2023 13:52:06 07/28/20 23 08/02/2023 CBC (INCL UDES DIFF/ PLT) MCHC 34.2 g/dL 32.0-3 6.0 normal Not Available [address], [address], 08/02/2023 13:52:06 07/28/20 23 08/02/2023 CBC (INCL UDES DIFF/ PLT) RDW 12.0 % 11.0-1 5.0 normal Not Available [address], [address], 08/02/2023 13:52:06 07/28/20 23 08/02/2023 CBC (INCL UDES DIFF/ PLT) platelet count 312 thous and/u L 140-40 0 normal Not Available [address], [address], 08/02/2023 13:52:06 07/28/20 23 08/02/2023 CBC (INCL UDES DIFF/ PLT) MPV 10.3 fL 7.5-12 .5 normal Not Available [address], [address], 08/02/2023 13:52:06 07/28/2008/02/2023 CBC (INCL UDES DIFF/ PLT) absolute neutrophils 4745 cells /uL 1500-7 800 normal Not Available [address], [address], 08/02/2023 13:52:06 07/28/2008/02/2023 CBC (INCL UDES DIFF/ PLT) absolute lymphocytes 1920 cells /uL 850-39 00 normal Not Available [address], [address], 08/02/2023 13:52:06 07/28/20 23 08/02/2023 CBC (INCL UDES DIFF/ PLT) absolute monocytes 496 cells /uL 200-95 0 normal Not Available [address], [address], 08/02/2023 13:52:06 07/28/2008/02/2023 CBC (INCL UDES DIFF/ PLT) absolute eosinophils 88 cells /uL 15-500 normal Not Available [address], [address], 08/02/2023 13:52:06 07/28/20 23 08/02/2023 CBC (INCL UDES DIFF/ PLT) absolute basophils 51 cells /uL 0-200 normal Not Available [address], [address], 08/02/2023 13:52:06 07/28/2008/02/2023 CBC (INCL UDES DIFF/ PLT) neutrophils 65 % normal Not Available [address], [address], 08/02/2023 13:52:06 07/28/20 23 08/02/2023 CBC (INCL UDES DIFF/ PLT) lymphocytes 26.3 % normal Not Available [facility] [address], [address], 08/02/2023 13:52:06 07/28/2008/02/2023 CBC (INCL UDES DIFF/ PLT) monocytes 6.8 % normal Not Available [address], [address], 08/02/2023 13:52:06 07/28/2008/02/2023 CBC (INCL UDES DIFF/ PLT) eosinophils 1.2 % normal Not Available [facility] [address], [address], 08/02/2023 13:52:06 07/28/20 23 08/02/2023 CBC (INCL UDES DIFF/ PLT) basophils 0.7 % normal Not Available [address], [address], 08/02/2023 13:52:06 07/28/2008/02/2023 PSA, TOTAL PSA, total 0.58 NG/mL < or = 4.00 normal The total PSA value from this assay syste m is stand ardiz ed again st the WHO stand brandon. The test resul t will be appro ximat lionel 20% lower when sohail red to the equim olar- stand ardiz ed total PSA ([employer] man Coult er). Sohail rison of seria l PSA resul ts shoul d be inter prete d with this fact in mind. This test was perfo rmed using the Sieme ns chemi lumin escen t metho d. Value s obtai vincent from diffe rent assay metho ds canno t be used inter zhang eably . PSA level s, regar dless of value , shoul d not be inter prete d as absol [place] evide nce of the prese nce or absen ce of disea se. Not Available [facility] [address], [place], [address], 08/02/2023 13:52:07 11/25/19 23 09/29/2022 colon oscop y scree branden (PROC ) No observ ation record ed. [address] (Medical Records) [facility] [address], [address], 11/25/2022 11:28:29 Result Notes None recorded. Problems Name Problem SNOMED Code Status Onset Date Resolution Date Notes Provider Name and Address Organization Details Recorded Time Mucus in stool 787589621 Active 022 Not Available [facility] 3 14:58:48 Strain of calf muscle 832351427 Active 022 Not Available [facility] 3 14:58:48 Problem Notes None recorded. Procedures Surgical History Date Name Laterality Status Provider Name and Address Organization Details Recorded Time vasectomy completed Not Available [facility] 0 11/05/2022 14:56:01 Imaging Results Imaging Date Name Status LastModified by Organiz ation Details LastModified Time 09/29/2022 colonoscopy screening (PROC) completed [address] (Medical Records) [address] [facility], [place], [address], 11/25/2022 11:28:29 Procedure Notes None recorded. Medical Equipment None Reported. Allergies No known drug allergies Medications Name Sig Start Date Stop Date Status Note LastModified by Organization Details LastModified Time amoxicillin 500 mg capsule Take 1 capsule 3 times a day by oral route for 10 days. 07/24 completed Not Available Not Available Not Available benzonatate 200 mg capsule Take 1 capsule 3 times a day by oral route. 07/30 completed Not Available Not Available Not Available Zithromax Z-Milan 250 mg tablet Take 2 TABLET EVERY DAY by oral route for 1 day then one daily 07/30 completed Not Available Not Available Not Available oseltamivir 75 mg capsule 08/02 completed Not Available Not Available Not Available mesalamine 1,000 mg rectal suppository 07/28 completed Not Available Not Available Not Available M-M-R II (PF) 1,000-12,500 TCID50/0.5 mL subcutaneous solution 07/31 completed Not Available Not Available Not Available Vitals Date Recorded Body mass index (BMI) Body height Oxygen saturation Oxygen saturation in Arterial blood by Pulse oximetry Heart rate Body temperature Body weight Systolic blood pressure Diastolic blood pressure Provider Name and Address Organization Details Last Updated DateTime 1 30.9 kg/m2 180.34 cm 98 % 98 % 54 /min 97.3 [degF] 729615. 35 g 130 mm[Hg] 80 mm[Hg] Not Available [facility] 3 14:57:14 Date Recorded Body height Oxygen saturation Oxygen saturation in Arterial blood by Pulse oximetry Heart rate Body temperature Systolic blood pressure Diastolic blood pressure Provider Name and Address Organization Details Last Updated DateTime 2 180.34 cm 98 % 98 % 67 /min 97.5 [degF] 112 mm[Hg] 78 mm[Hg] Not Available [facility] 3 14:57:14 Date Recorded Body height Provider Name an d Address Organization Details Last Updated DateTime 07/28/2023 180.34 cm CRISTIAN Henriquez [facility] [employer] 07/28/2023 11:23:07 Date Recorded Body mass index (BMI) Body weight Heart rate Oxygen saturation Oxygen saturation in Arterial blood by Pulse oximetry Systolic blood pressure Diastolic blood pressure Provider Name and Address Organization Details Last Updated DateTime 3 31.8 kg/m2 099663. 06 g 62 /min 98 % 98 % 116 mm[Hg] 72 mm[Hg] Dian Muñoz MA [facility] [employer] 3 11:30:18 Social History Question Answer Notes LastModified by Organizat ion Details LastModified Time Tobacco Smoking Status Never Smoker Not Available [facility] 11/05/2022 14:55:26 Do You Have An Advance Directive? No [id number] Information not available 11/05/2022 What Is Your Level Of Alcohol Consumption? None MIGRATION.[id number] Information not available 11/05/2022 Do You Wear A Helmet When Biking? No MIGRATION.647311 0840 Information not available 11/05/2022 What Is Your Level Of Caffeine Consumption? Heavy MIGRATION.653912 1297 Information not available 11/05/2022 In The 14 Days Before Symptom Onset, Have You Had Close Contact With A Laboratory-confir med COVID-19 While That Case Was Ill? No MIGRATION.291419 5619 Information not available 11/05/2022 In The 14 Days Before Symptom Onset, Have You Had Close Contact With A Person Who Is Under Investigation For COVID-19 While That Person Was Ill? No MIGRATION.303228 7616 Information not available 11/05/2022 Are You Currently Employed? Yes [email or web address] Information not available 07/27/2023 What Type Of Diet Are You Following? REGULAR MIGRATION.536384 5609 Information not available 11/05/2022 What Is The Highest Grade Or Level Of School You Have Completed Or The Highest Degree You Have Received? 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 No MIGRATION.221029 5991 Information not available 11/05/2022 Are There Any Guns Present In Your Home? Yes MIGRATION.620713 5737 Information not available 11/05/2022 Do You Use Insect Repellent Routinely? Yes MIGRATION.470799 8354 Information not available 11/05/2022 What Is Your Relationship Status? MIGRATION.205245 4089 Information not available 11/05/2022 Do You Use Your Seat Belt Or Car Seat Routinely? Yes MIGRATION.472860 5045 Information not available 11/05/2022 Do You Have Smoke And Carbon Monoxide Detectors In Your Home? Yes MIGRATION.942498 4069 Information not available 11/05/2022 Are You Passively Exposed To Smoke? No MIGRATION.150168 0483 Information not available 11/05/2022 Are There Any Smokers In Your House? No MIGRATION.383361 2257 Information not available 11/05/2022 Do You Feel Stressed (tense, Restless, Nervous, Or Anxious, Or Unable To Sleep At Night)? [id number] MIGRATION.101410 9753 Information not available 11/05/2022 Do You Use Any Illicit Or Recreational Drugs? No MIGRATION.738438 1767 Information not available 11/05/2022 Do You Use Sunscreen Routinely? Yes MIGRATION.669475 4277 Information not available 11/05/2022 Has Tobacco Cessation Counseling Been Provided? No MIGRATION.481926 4183 Information not available 11/05/2022 Have You Recently Traveled Abroad? No MIGRATION.876029 1359 Information not available 11/05/2022 Do You Have Any Dietary Restrictions? No MIGRATION.034291 6409 Information not available 11/05/2022 Do You Or Have You Ever Used Any Other Forms Of Tobacco Or Nicotine? No MIGRATION.147274 7984 Information not available 11/05/2022 Sex: Unknown Functional Status Question Answer Note LastModified by Organizat ion Details LastModified Time What is your exercise level? Moderate [id number] Information not available 11/05/2022 Mental Status None recorded. Family History Relationship Description Onset Age of this Age Resolved Age Notes LastModified by Organization Details LastModified Time Maternal Uncle Heart disease [id number] [id number] Not available 11/05/2022 14:56:02 Paternal Uncle Heart disease MIGRATION.727 [id number] Not available 11/05/2022 14:56:02 Father Heart disease MIGRATION.100 [id number] Not available 11/05/2022 14:56:02 Father Diabetes mellitus MIGRATION.269 [id number] Not available 11/05/2022 14:56:02 Father Hypertensive disorder MIGRATION.527 [id number] Not available 11/05/2022 14:56:02 Maternal Grandfather Heart disease MIGRATION.107 [id number] Not available 11/05/2022 14:56:02 Maternal Grandmother Heart disease MIGRATION.100 [id number] Not available 11/05/2022 14:56:02 Paternal Grandfather Heart disease MIGRATION.891 [id number] Not available 11/05/2022 14:56:02 Paternal Grandfather Diabetes mellitus MIGRATION.947 [id number] Not available 11/05/2022 14:56:02 Paternal Grandmother Heart disease MIGRATION.789 [id number] Not available 11/05/2022 14:56:02 Notes:Mother living 60 in go od health Father living 61 in good health Two brothers both living and in good health Medical History No medical history recorded. Immunizations Vaccine Type Date Status Note Provider Nam e and Address Organization Details Recorded Time Influenza, high-dose, trivalent, PF 06/29/2014 completed Not Available [facility] 2022 15:01:59 Past Encounters Encounter ID Performer Location Encounter Start Date Encounter Closed Date Diagnosis/Indication Diagnosis SNOMED-CT Code Diagnosis ICD10 Code Diagnosis Note [id number] [facility] [place] [address] [place] [address] 07/30/2021 00:00:00 08/03/2021 01:01:31 [id number] [facility] [place] [address] [place] [address] 07/29/2022 00:00:00 07/29/2022 15:41:09 [id number] ERNO Das [facility] [place] [address] [place] [address] 07/28/2023 11:21:31 07/28/2023 12:04:03 Adult health examination 607283269 Z00.00 well exam completed. annual fasting labs are ordered. Diabetes m ellitus screening 041573204 Z13.1 Screening for malignant neoplasm of prostate 500050791 Z12.5 Thyroid di sorder screening 435434276 Z13.29 Family his tory of coronary arteriosclerosis 626873353 Z82.49 lipoprofil e ordered yearly with fam hx of CAD prominent. Health Concerns Section Related Observation LastModified by Organization Detai ls LastModified Time None Recorded Concern Status LastModified by Organization Details LastModified Time None Recorded Advance Directives Directive N: Payers Encounter Date Sequence Insurance Name Policy Number Policy Pinon Covered Member ID Pinon Member ID Guarantor Name 07/28/2023 1 [place] [id number] Magdy Orr [id number] Magdy Orr Notes Date Note Type Note Provider Name and Address Organization Details Recorded Time 07/30/2021 text/html Generic HPI TemplateReported bypatient.Notes:Pt is here today for his annual wellness exam, doing fine, no complaints Not Available [facility] 08/03/2021 01:01:31 07/29/2022 text/html Generic HPI TemplateReported bypatient.Notes:Pt is here today for his annual wellness exam, doing fine, no complaintsis concerned about family hx of colon polyps, would like to discuss colonoscopyreports mucous in the stool several months ago that is persisting. no blood in stool, stools are solid and routine. no pain. no diet changes. Not Available [place] 07/29/2022 15:41:09 07/28/2023 text/html Generic HPI TemplateReported bypatient.Notes:pt here for annual exam. no c/o. no medications. would like lab orders. RENO Das [address] [place] [address], [place] [address], [place], [address], [place] 07/30/2023 22:18:39
--- OUTSIDE RECORDS SUMMARY | 2024-11-21 00:29 | XMS_ITS | Data Portability ---
[facility] Organization [facility] Address [address] [place] [address] Assessment No assessment recorded. Plan of Treatment Reminders Order Date Submit Date Provider Last Modified By Organization Details Last Modified Time Details Appointments None recorded. Lab TSH + free T4, serum 2023 [facility], [address], [place], [address], 4 08:25:30 CMP, serum or plasma 2023 024 [facility], [address], [place], [address], 4 08:25:30 CBC w/ auto diff 2023 024 [facility], [address], [place], [address], 4 08:25:31 lipid panel, serum 2023 [facility], [address], [place], [address], 4 08:25:30 PSA, serum or plasma 2023 [facility], [address], [place], [address], 4 08:25:31 HbA1c (hemoglobi n A1c), blood 2023 [facility], [address], [place], [address], 4 08:25:31 Referral gastroente rologist referral - previous dr. alonso patient. transfer care to new GI. Pt needs to see specialist first ? due for cscope 2023 [email or web address] Ángel bardales MD, [address], [address], [place], [address], 5 16:58:21 orthopedic surgeon referral 2023 [email or web address] [facility], [address], [address], [place], [address], 5 12:01:48 Procedures None recorded. Surgeries None recorded. Imaging None recorded. Medication Orders mesalamine 1,000 mg rectal suppositor y 2023 [facility] [place], [address], [place], [id number], 4 15:41:26 Patient TargetsNo targets recorded. 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 alonso patient. transfer care to new GI. Pt needs to see specialist first ? due for cscope Referring Physician: Jessica Boinlla, Internal Medicine, Encounter Date: 07/29/2024 Results Created Date Observation Date Name Description Value Unit Range Abnormal Flag Note LastModifiedBy Organization Detail LastModifiedTime 09/15/19 25 09/29/2022 colon oscop y scree branden (PROC ) No observ ation record ed. BARCODE Not Available 2024 12:48:31 09/15/19 25 09/29/2022 colon oscop y scree branden (PROC ) No observ ation record ed. BARCODE Not Available 2024 16:14:16 Result Notes None recorded. Problems Name Problem SNOMED Code Status Onset Date Resolution Date Notes Provider Name and Address Organization Details Recorded Time Colitis 63723038 Active 2023 RENO Das Attn: Dagoberto lindquist,[address] [facility], [place], [address], [place] [facility] 4 15:26:18 Pain of right shoulder joint 919650597446983 00 Active 2023 RENO Das Attn: Dagoberto lindquist,[address] [facility], [place], [address], [place] [facility] 4 21:44:44 Body mass index 30+ - obesity 035377762 Active 2023 RENO Das Attn: Dagoberto lindquist,[address] [facility], [place], [address], [place] [facility] 4 21:45:34 Obesity 455826239 Active 2023 RENO Das Attn: Dagoberto lindquist,[address] [facility], [place], [address], [place] [facility] 4 21:45:35 Problem Notes None recorded. Procedures Surgical History None recorded. Imaging Results Imaging Date Name Status LastModified by Organiz ation Details LastModified Time 09/29/2022 colonoscopy screening (PROC) completed BARCODE Information not available 09/15/2024 12:48:31 09/29/2022 colonoscopy screening (PROC) completed BARCODE Information not available 09/15/2024 16:14:16 Procedure Notes None recorded. Medical Equipment None Reported. Allergies No known drug allergies Medications Name Sig Start Date Stop Date Status Note LastModified by Organization Details LastModified Time mesalamine 1,000 mg rectal suppository Insert 1 suppository every day by rectal route as needed for 10 days, for colitis flare up. active Not Available Not Available No t Available Vitals Date Recorded Body height Body mass index (BMI) Body weight Oxygen saturation Oxygen saturation in Arterial blood by Pulse oximetry Heart rate Systolic blood pressure Diastolic blood pressure Provider Name and Address Organization Details Last Updated DateTime 180.34 cm 31.8 kg/m2 500802. 78 g 97 % 97 % 64 /min 130 mm[Hg] 80 mm[Hg] Aleena Rivera [facility] 15:04:27 Date Recorded Respiratory rate Systolic blood pressure Diastolic blood pressure Provider Name and Address Organization Details Last Updated DateTime 07/29/2024 18 /min 140 mm[Hg] 90 mm[Hg] RENO Das Attn: Accounting, [address] [facility], [place], [address], [facility] 07/29/2024 15:41:43 Social History Question Answer Notes LastModified by Organizat ion Details LastModified Time Tobacco Smoking Status Never Smoker Aleena Rivera MA null, [facility] 07/29/2024 17:14:19 What Is Your Level Of Alcohol Consumption? None Information not available 07/29/2024 What Was The Date Of Your Most Recent Tobacco Screening? 07/29/2024 Information not available 07/29/2024 Sex: Male Functional Status None recorded. Mental Status None recorded. Family History Relationship Description Onset Age of this Age Resolved Age Notes LastModified by Organization Details LastModified Time Father Coronary arterioscler osis crevisma Not available 2023 17:15:51 Father Diabetes mellitus crevisma Not available 2023 17:15:57 Father Heart disease crevisma Not available 2023 17:16:14 Father Hypertensive disorder crevisma Not available 2023 17:16:23 Medical History Condition Response Have you had a colonoscopy in the last 1 0 years? Y Past Encounters Encounter ID Performer Location Encounter Start Date Encounter Closed Date Diagnosis/Indication Diagnosis SNOMED-CT Code Diagnosis ICD10 Code Diagnosis Note [id number] RENO Das [facility] [place] [address] [place] [address] 07/29/2024 14:36:57 07/29/2024 16:02:54 Adult health examination 481853520 Z00.00 Annual wellness exam completed Cholesterol screening 27 2568697 Z13.220 Fasting lipid panel ordered Diabetes m ellitus screening 219005724 Z13.1 Annual diabetes screening due Screening for malignant neoplasm of prostate 561771969 Z12.5 Annual PSA screening is due Thyroid di sorder screening 108165154 Z13.29 Routine thyroid function testing is due Long-term drug therapy 862411108 Z79.891 CBC and CMP due Pain of ri ght shoulder joint 6367248604 7702291 M25.511 Pain in the right shoulder joint with some limited range of motion with strength intact at that has been present for several months now with no precipitat ing injury noted but he suspects it came from doing a lot of basketball shooting. We will refer him officially to orthopedic s for evaluation on the proper path of treatment. Colitis 95830983 K52.9 noted and sep 2022 was last colonoscop y. We will refer him to a new gastroente rologist since his previous has retired. In the meantime we will also provide a refill on his mesalamine a 1000 mg suppositor y to use for 10 days for current flare up Body mass index 30+ - obesity 379972816 Z68.31 BMI is 31.8 Obesity 342066289 E66.9 discussed healthy diet, exercise, controllin g carbohydra rey and added sugars in the diet Health Concerns Section Related Observation LastModified by Organization Detai ls LastModified Time None Recorded Concern Status LastModified by Organization Details LastModified Time None Recorded Advance Directives Directive None Recorded Payers Encounter Date Sequence Insurance Name Policy Number Policy Pinon Covered Member ID Pinon Member ID Guarantor Name 07/29/2024 1 [place] [id number] Magdy Orr [id number] Magdy Orr Notes Date Note Type Note Provider Name and Address Organization Details Recorded Time 07/29/2024 text/html Patient is here for his routine annual wellness exam. He would like to have updated lab work. His only complaint today is he has some ongoing chronic pain in his right shoulder joint that is not been getting any better this year. He thinks he may have injured it shooting a lot of basketball, though there was no specific injury that he recalls. Also has a history of some type of colitis which was managed by Dr. Alonso in the past and he uses mesalamine rectal suppository on an as-needed basis. He would like to have a refill on that and then get a referral to a new GI since his previous retired RENO Das Attn: Accounting,[address] [facility], [place], [address], [place] [facility] 08/07/2024 21:46:15
--- OUTSIDE RECORDS SUMMARY | 2024-11-21 00:29 | XMS_ITS | Clinical Summary ---
Author Organization [employer] [facility] Address [address] [facility] Attn: Epic Prelude ADT RASHIDA BENZ [address] Care Team Providers Care Works Manager Name Role Phone Unavailable Primary Care Provider Unavailabl e Medications mesalamine (CANASA) 1,000 mg Suppository INSERT 1 SUPPOSITORY RECTALLY AT BEDTIME FOR 4 WEEKS. 30 Suppository 1 10/01/2022 4:36 PM MEDIA SALES REPRESENTATIVE 09/30/19 23 Active mesalamine (CANASA) 1,000 mg Suppository Unwrap and insert 1 suppository rectally every day at bedtime for 4 weeks. 30 Suppository 1 06/09/2023 4:27 PM CDT 02/21/20 23 Active mesalamine (CANASA) 1,000 mg Suppository Insert 1 Suppository (1,000 mg) per rectum 1 time daily as needed for 10 days for colitis flare up. 30 Suppository 08/03/2024 10:32 AM MEDIA SALES REPRESENTATIVE 07/29/20 24 Active Encounters Date Type Department Care Team Description 11/16/2024 External Device Data [facility]STRACTION Provider, Abstract 11/15/2024 External Device Data [facility] Provider, Abstract 10/18/2024 External Device Data [facility] Provider, Abstract from Last 3 Months Social History Tobacco Use Types Packs/Day Years Used Date Smoking Tobacco: Never Assessed Sex and Gender Information Value Date Recorded Sex Assigned at Not on file Legal Sex Male 5:45 AM MEDIA SALES REPRESENTATIVE Gender Identity Not on file Sexual Orientation Not on file Plan of Treatment Health Maintenance Due Date Last Done Comments DTAP/TDAP/TD VACCINES (1 - Tdap) 1998 HEPATITIS B VACCINES (1 of 3 - 19+ 3-dose series) 1998 COLORECTAL SCREENING 2024 Colorectal Cancer Screening 2024 FIT-DNA Q 3 years 2024 FIT/FOBT Q 1 year 2024 Flex Sig/CT Colonography Q 5 years 2024 INFLUENZA VACCINE (#1) 2024 HPV VACCINES Aged Out No longer eligi ble based on patient's age to complete this topic PNEUMOCOCCAL VACCINE 0-49 YEARS Aged Out No longer eligible based on patient's age to complete this topic Insurance RX [employer] Commercial
[2024-11-21 10:05] VITALS: BP 134/96; PULSE 60; RESP 16; TEMP 36.1; O2SAT 100
[2024-11-21] MEDS: LACTATED RINGERS 1,000 ML 150 ML IV CONT (10:13)
--- NOTE | 2024-11-21 10:26 | P.PNAN_ITS ---
Anes - Initial Pre Proc Eval Procedure: Operation Date: 11/21/24 11:00 Proposed Procedures p Colonoscopy - Ángel Irene MD Date/Time: 11/21/24 10:26 Surgeon: Ángel Irene MD Pre Op Diagnosis: ulcerative proctitis w/o complications Patient Data Age: 44 Gender: M Height: 1.78 m Weight: 97.3 kg Last Vital Signs Temp 36.1 C L 11/21/24 10:05 Pulse 60 11/21/24 10:05 Resp 16 11/21/24 10:05 BP 134/96 H 11/21/24 10:05 Pulse Ox 100 11/21/24 10:05 O2 Del Method Room Air 11/21/24 10:05 Allergies Allergy/AdvReac Type Severity Reaction Status Date / Time No Known Allergies Allergy Verified 11/21/24 10:04 Home Medications ?Medication ?Instructions ?Recorded ?Confirmed ?Type Pure therapro acute injury 1 cap PO DAILY 11/09/24 11/09/24 History multivitamin 1 tablet PO DAILY 11/09/24 11/09/24 History Patient hx anesthesia problems: none Family hx anesthesia problems: none Results Review: All pre-operative results and documents have been reviewed as part of the pre- operative evaluation. [facility] Past Medical History Medical History (Updated 11/21/24 @ 10:26 by Richie Burden MD) Overweight Family History Family History Father Heart disease Diabetes mellitus Colon polyp Grandparent Carcinoma of colon Social History Social History Smoking status: Never smoker Alcohol intake: never Substance use: never Substance use type: does not use Living arrangements: with family Spiritual care concerns: No Anes - Eval Final PreProcedure Day of Procedure 11/21/24 10:26 Patient weight: overweight Heart: regular rate and rhythm Lungs: clear to auscultation Airway: Mallampati scale class II Neurological: alert and oriented Last oral intake: >/= 8 hours ASA classification: II Emergent: no Anesthetic plan: proceed Anesthesia type and monitoring: general GIVS and standard monitoring Results Review: All pre-operative results and documents have been reviewed as part of the pre- operative evaluation. Informed Consent: The patient's anesthetic plan and its attendant risks and benefits were discussed with the patient/family/POA. Questions were solicited and answers provided to the satisfaction of the patient/family/POA.
--- NOTE | 2024-11-21 10:58 | PM.HPGS ---
History of Present Illness History of Present Illness Consent: Risks, benefits, and alternatives have been discussed and questions answered. Patient agrees to proceed with procedure. 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 Alonso after he presented at that time for evaluation of change in bowel habits with mucus and blood in his stools. He has been on PRN Canasa suppositories last flare months ago and currently doing well, he is not taking any medications for that. Review of Systems Review of Systems: All systems reviewed & are unremarkable except as noted in HPI and below PMFSH Past Medical History Medical History (Updated 11/21/24 @ 10:26 by Richie Burden MD) Overweight Family History Family History Father Heart disease Diabetes mellitus Colon polyp Grandparent Carcinoma of colon Social History Social History Smoking status: Never smoker Alcohol intake: never Substance use: never Substance use type: does not use Living arrangements: with family Spiritual care concerns: No Meds Home Medications and Allergies Home Medications ?Medication ?Instructions ?Recorded ?Confirmed ?Type Pure therapro acute injury 1 cap PO DAILY 11/09/24 11/09/24 History multivitamin 1 tablet PO DAILY 11/09/24 11/09/24 History Allergies Allergy/AdvReac Type Severity Reaction Status Date / Time No Known Allergies Allergy Verified 11/21/24 10:04 Vital Signs Vital Signs - 24 hr 11/21/24 10:05 Temperature 97 F L Pulse Rate 60 Respiratory Rate 16 Blood Pressure 134/96 H Pulse Oximetry 100 Oxygen Delivery Room Air Exam Const: General: comfortable and no acute distress HENMT: Face/Nose/Sinus: Normal nares present Eyes: General: appearance normal, both eyes and all related structures Neck: Neck: no JVD Resp: Auscultation: clear to auscultation bilaterally Cardio: Rate: regular rate Rhythm: regular rhythm GI: Inspection: non-distended GI Palp: Yes Soft to palpation Skin: General skin exam: normal color Neuro: General: gait normal Speech: normal speech Extrem: General: normal to inspection Psych: Mental Status: mental status grossly normal Assessment and Plan Assessment and plan (1) Ulcerative proctitis: Code(s): K51.20 - Ulcerative (chronic) proctitis without complications Status: Acute Assessment and Plan: asymptomatic now colonoscopy
[2024-11-21 11:16] VITALS: BP 120/84; PULSE 57; RESP 11; O2SAT 96
[2024-11-21 11:26] VITALS: BP 120/80; PULSE 60; RESP 16; O2SAT 96
[2024-11-21 11:36] VITALS: BP 126/84; PULSE 60; RESP 18; O2SAT 96
== END 2024-11-21 11:44 | disposition home or self-care (01) ==
PROVIDERS: PCP Physician Assistant; Referring Provider Nurse Practitioner; Visit Provider Internal Medicine Gastroenterology
PROC: 0DJD8ZZ Inspection of Lower Intestinal Tract, Via Natural or Artificial Opening Endoscopic (ICD-10-PCS; CPT 45378; principal; 2024-11-21 11:00)
DX: Z09 Encounter for follow-up examination after completed treatment for conditions other than malignant neoplasm (principal); D12.3 Benign neoplasm of transverse colon; K64.8 Other hemorrhoids; K57.30 Diverticulosis of large intestine without perforation or abscess without bleeding; Z80.0 Family history of malignant neoplasm of digestive organs; Z83.719 Family history of colon polyps, unspecified; Z82.49 Family history of ischemic heart disease and other diseases of the circulatory system
CPT/HCPCS: 45380; 45385; 88305; J2003; J2704; J7120